=== PATIENT | male | born 1980 | race Caucasian/White ===

== ENCOUNTER 2017-12-14 16:16 | Emergency (ER) | payer OTHER ==
[2017-12-14] MEDS ORDERED: Lidocaine 1% 20 ML MDV INJECT ONE (16:40)
[2017-12-14] MEDS ORDERED: Diphtheria,Pertussis(Acell),Tetanus Vaccine 0.5 ML Syringe IM ONE (16:43)
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
== END 2017-12-14 17:27 | disposition home or self-care (01) ==
LOC: MW.ED 16:16
DX: S01.01XA Laceration without foreign body of scalp, initial encounter (principal); F17.210 Nicotine dependence, cigarettes, uncomplicated; Z23 Encounter for immunization; W22.8XXA Striking against or struck by other objects, initial encounter
CPT/HCPCS: 12002; 90471; 90715; 99282; 99283-25